=== PATIENT | female | born 1945 | race Two or more races ===

== ENCOUNTER → 2018-07-31 | Outpatient (REF) | payer MEDICARE, MEDICAID | LOC: M LAB LCGH 09:18 | PROVIDERS: ATTEND Physician Assistant | DX: L43.9 Lichen planus, unspecified (principal) ==

== ENCOUNTER → 2021-12-15 | Outpatient (CLI) | payer MEDICARE, MEDICAID ==
[~2021-12-15] MED LIST: ACET-897 PO; FLUT50SP33; MODU5TA PO; OMEG10002 PO; VITMTA PO
== END ==
LOC: M LABSMTC 10:59
PROVIDERS: ATTEND Anesthesiology
DX: Z01.812 Encounter for preprocedural laboratory examination (principal); Z11.52 Encounter for screening for COVID-19

== ENCOUNTER 2021-12-20 08:06 | Day surgery (SDC) | payer MEDICARE, MEDICAID ==
[~2021-12-20] VITALS: Ht 154.9 cm; Wt 63.4 kg
[~2021-12-20 08:06] MED LIST changes: +BSS IRRIG/VANCO(10MG)/TOBRA(5MG)/EPINEPH(1:1000-0.5CC)500ML BAG-ORONLY IR ONE; +CEFUROXIME 1MG/0.1ML INTRACAMERAL INJ As Ordered ONE; +CYCLOPENTOLATE 1% OPHTH SOLN 2 ML BTL OD SCH; +LIDOCAINE 1% SDV 5ML VIAL As Ordered ONE; +LIDOCAINE 3.5 % 1ML OPHTH TOPICAL GEL OU ONE; +OFLOXACIN 0.3 % (OCUFLOX) OPTH SOL 5ML OD ONE; +PHENYLEPHRINE 2.5% OPHTH SOL 2ML OD SCH; +PHENYLEPHRINE HCL 10 % OPHTH. SOL 5ML OD PRN; +TROPICAMIDE 1% OPHTH SOLN 2ML OD SCH
[2021-12-20] MEDS ORDERED: MIDAZOLAM INJ 2MG/2ML VIAL (J2250 PER 1MG) As Ordered ONE (10:56)
[2021-12-20] MEDS ORDERED: fentaNYL 100 MCG/2 ML INJECTION As Ordered ONE (10:56)
== END 2021-12-20 11:25 | disposition home or self-care (01) ==
LOC: M SDC 08:06
PROVIDERS: ATTEND Ophthalmology
DX: H25.11 Age-related nuclear cataract, right eye (principal); R60.0 Localized edema; I73.9 Peripheral vascular disease, unspecified; Z79.899 Other long term (current) drug therapy; Z88.8 Allergy status to other drugs, medicaments and biological substances; Z88.0 Allergy status to penicillin
CPT/HCPCS: 66984; J0697; J2250; J3010; V2632

== ENCOUNTER → 2022-01-26 | Outpatient (REF) | payer MEDICARE, MEDICAID ==
[~2022-01-26] MED LIST changes: -BSS IRRIG/VANCO(10MG)/TOBRA(5MG)/EPINEPH(1:1000-0.5CC)500ML BAG-ORONLY IR ONE; -CEFUROXIME 1MG/0.1ML INTRACAMERAL INJ As Ordered ONE; -CYCLOPENTOLATE 1% OPHTH SOLN 2 ML BTL OD SCH; -LIDOCAINE 1% SDV 5ML VIAL As Ordered ONE; -LIDOCAINE 3.5 % 1ML OPHTH TOPICAL GEL OU ONE; -OFLOXACIN 0.3 % (OCUFLOX) OPTH SOL 5ML OD ONE; -PHENYLEPHRINE 2.5% OPHTH SOL 2ML OD SCH; -PHENYLEPHRINE HCL 10 % OPHTH. SOL 5ML OD PRN; -TROPICAMIDE 1% OPHTH SOLN 2ML OD SCH
== END ==
LOC: M LAB REF 17:08
PROVIDERS: ATTEND Podiatrist
DX: M79.674 Pain in right toe(s) (principal)

== ENCOUNTER → 2022-03-01 | Outpatient (REF) | payer MEDICARE, MEDICAID | LOC: M SFHCDERM 16:37 | PROVIDERS: ATTEND Physician Assistant | DX: D49.2 Neoplasm of unspecified behavior of bone, soft tissue, and skin (principal); L57.0 Actinic keratosis ==

== ENCOUNTER → 2022-03-23 | Outpatient (CLI) | payer MEDICARE, MEDICAID | LOC: M LABSMTC 09:13 | PROVIDERS: ATTEND Anesthesiology | DX: Z01.812 Encounter for preprocedural laboratory examination (principal); Z20.822 Contact with and (suspected) exposure to COVID-19 ==

== ENCOUNTER 2022-03-28 08:52 | Day surgery (SDC) | payer MEDICARE, MEDICAID ==
[~2022-03-28] VITALS: Ht 154.9 cm; Wt 62.1 kg
[~2022-03-28 08:52] MED LIST changes: +BSS IRRIG/VANCO(10MG)/TOBRA(5MG)/EPINEPH(1:1000-0.5CC)500ML BAG-ORONLY IR ONE; +CYCLOPENTOLATE 1% OPHTH SOLN 2ML BTL OS SCH; +LIDOCAINE 1% SDV 5ML VIAL As Ordered ONE; +LIDOCAINE 3.5 % 1ML OPHTH TOPICAL GEL OU ONE; +OFLOXACIN 0.3 % (OCUFLOX) OPTH SOL 5ML OS ONE; +PHENYLEPHRINE 10% OPHTH SOL 5ML OS PRN; +PHENYLEPHRINE 2.5% OPHTH SOL 2ML OS SCH; +TROPICAMIDE 1% OPHTH SOLN 15ML OS SCH
[2022-03-28] MEDS ORDERED: MIDAZOLAM INJ 2MG/2ML VIAL As Ordered ONE (09:02)
[2022-03-28] MEDS ORDERED: fentaNYL 100 MCG/2 ML INJECTION As Ordered ONE (09:02)
[2022-03-28 10:04] VITALS: BP 129/67
== END 2022-03-28 10:18 | disposition home or self-care (01) ==
LOC: M SDC 08:52
PROVIDERS: ATTEND Ophthalmology
DX: H25.12 Age-related nuclear cataract, left eye (principal); I73.9 Peripheral vascular disease, unspecified; Z88.0 Allergy status to penicillin; Z88.8 Allergy status to other drugs, medicaments and biological substances; Z79.899 Other long term (current) drug therapy; Z91.02 Food additives allergy status; I10 Essential (primary) hypertension
CPT/HCPCS: 66984; V2632

== ENCOUNTER → 2022-04-20 | Outpatient (REF) | payer MEDICARE, MEDICAID ==
[~2022-04-20] MED LIST changes: -BSS IRRIG/VANCO(10MG)/TOBRA(5MG)/EPINEPH(1:1000-0.5CC)500ML BAG-ORONLY IR ONE; -CYCLOPENTOLATE 1% OPHTH SOLN 2ML BTL OS SCH; -LIDOCAINE 1% SDV 5ML VIAL As Ordered ONE; -LIDOCAINE 3.5 % 1ML OPHTH TOPICAL GEL OU ONE; -OFLOXACIN 0.3 % (OCUFLOX) OPTH SOL 5ML OS ONE; -PHENYLEPHRINE 10% OPHTH SOL 5ML OS PRN; -PHENYLEPHRINE 2.5% OPHTH SOL 2ML OS SCH; -TROPICAMIDE 1% OPHTH SOLN 15ML OS SCH
== END ==
LOC: M LAB REF 11:36
PROVIDERS: ATTEND Podiatrist
DX: M79.671 Pain in right foot (principal); L03.031 Cellulitis of right toe

== ENCOUNTER → 2022-08-16 | Outpatient (REF) | payer MEDICARE, MEDICAID | LOC: M LAB REF 17:50 | PROVIDERS: ATTEND Podiatrist | DX: L03.126 Acute lymphangitis of left lower limb (principal) ==